=== PATIENT | male | born 1975 | race Caucasian/White ===

== ENCOUNTER 2016-07-24 11:24 | Emergency (ER) | payer OTHER ==
[~2016-07-24] VITALS: Ht 177.8 cm; Wt 85.0 kg
[2016-07-24 11:28] VITALS: TEMP 36.4; Ht 177.8 cm; Wt 85.0 kg
[2016-07-24] MEDS ORDERED: ONDANSETRON INJ 2 MG/ML 2 ML VIAL IV STA (12:02)
[2016-07-24] MEDS ORDERED: SODIUM CHLORIDE 0.9% 1000ML 1,000 ML IV STA (12:02)
[2016-07-24] MEDS ORDERED: MoRPHine SULFATE 4 MG/ML 1 ML CARP\\VIAL IV STA (12:02)
[2016-07-24] MEDS ORDERED: ONDANSETRON INJ 2 MG/ML 2 ML VIAL ONE (12:05)
[2016-07-24] MEDS ORDERED: MoRPHine SULFATE 4 MG/ML 1 ML CARP\\VIAL ONE (12:05)
--- NOTE | 2016-07-24 12:14 | DIAGNOSTIC IMAGING REPORT ---
RIGHT ANKLE MIN 3 VIEWS ROUTINE CLINICAL HISTORY: Fall Right trauma. Pain. COMPARISON: None. DISCUSSION: Mildly displaced by or potentially trimalleolar fracture right ankle. Fractures medial and lateral malleoli are noted. There is be a vertical fracture of the anterior distal aspect tibia extending to the articular services. Ankle mortise is moderately disrupted. IMPRESSION: Displaced trimalleolar fracture right ankle. Electronically signed by: Lew Aguirre M.D. 07/24/2016 12:12 PM Dictated Date/Time: 07/24/2016 12:11 PM
--- NOTE | 2016-07-24 14:57 | EMERGENCY ROOM VISIT NOTE ---
History Report prepared by Nestor: Peterson Loza Under the Supervision of: Dr. Darren Field M.D. First contact with patient: 11:55 Chief Complaint: LEG PAIN,LEG INJURY Stated Complaint: BROKEN LEG -WORK RELATED History of Present Illness The patient is a 41 year old male who presents to the Emergency Room with complaints of constant right ankle pain s/p fall occurring just prior to arrival. He states that he was on a latter at work when it slipped out from under him. He states that his leg became wedged between a few of the stairs as the latter folded. The patient did not hit his head or lose consciousness. He denies any abdominal pain, chest pain, extremity pain, back pain, or shortness of breath. He describes his pain as feeling "uncomfortable". 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 Source of History: patient Onset: Just prior to arrival Position: ankle (right) Symptom Intensity: "uncomfortable" Timing: constant Associated Symptoms: No LOC, No SOB, No abdominal pain, No back pain, No chest pain, No neck pain Review of Systems See HPI for pertinent positives & negatives. A total of 10 systems reviewed and were otherwise negative. Past Medical & Surgical Medical Problems: (1) No Known Active Medical Problems Old medical records were reviewed. Nurse's notes were reviewed and I agree with. Family History No pertinent family history stated. Social History Smoking Status: Never Smoker Occupation Status: employed Current/Historical Medications Scheduled PRN Oxycodone Immediate Rel Tab (Roxicodone Ir), 1-2 TAB PO Q4H PRN for Severe Pain Allergies Coded Allergies: No Known Allergies (Unverified , 07/24/16) Physical Exam Vital Signs Date Time Temp Pulse Resp B/P Pulse Ox O2 Delivery O2 Flow Rate FiO2 07/24/16 14:33 76 18 120/84 98 Room Air 07/24/16 12:05 65 18 117/83 95 Room Air 07/24/16 11:28 36.4 62 20 89/57 98 Room Air Physical Exam General: Well developed, well nourished, uncomfortable appearing middle aged male in no acute distress, breathing comfortably on room air. Normal speech. Glascow coma score of 15. Complaining of ankle pain and denying any other complaints. HEENT: Normal cephalic atraumatic. Pupils are equal round and reactive to light. Extraocular movements are intact. Oropharynx is pink with moist mucous membranes. No swelling of the mouth lips or tongue. No hyphema. No blood from the nose or septal hematoma. Mid face is stable. No dental trauma or malocclusion. Neck: No meningeal signs or stiffness. No midline tenderness. No Stridor. Chest: Clear to auscultation bilaterally. No wheezes or rhonchi. No increased work of breathing. No rib or sternal tenderness. No subcutaneous air. No seat belt cruz or external signs of trauma. Heart: Regular rate and rhythm without murmurs or gallops. Abdomen: Soft nontender, nondistended without rebound guarding or rigidity. No seatbelt cruz or external signs of trauma Extremities: No cyanosis or clubbing. No calf tenderness or asymmetry. Right ankle is moderately swollen bilaterally. Normal pulses on exam. No laceration. No tenderness to the knee. Spine/Back. Non tender to palpation. No CVA tenderness. Skin: Good turgor without rashes. Neurologic exam: Cranial nerves two through 12 are intact. Motor and sensation are intact and symmetrical throughout. Normal level of consciousness Medical Decision & Procedures ER Provider Diagnostic Interpretation: X-ray results as stated below per interpretation by me and the radiologist: RIGHT ANKLE MIN 3 VIEWS ROUTINE DISCUSSION: Mildly displaced by or potentially trimalleolar fracture right ankle. Fractures medial and lateral malleoli are noted. There is be a vertical fracture of the anterior distal aspect tibia extending to the articular services. Ankle mortise is moderately disrupted. IMPRESSION: Displaced trimalleolar fracture right ankle. Electronically signed by: Lew Aguirre M.D. Medications Administered Medications (Trade) Dose Ordered Sig/Ramone Route Start Time Stop Time Status Last Admin Dose Admin Sodium Chloride (Nss 1000ml) 1,000 ml @ 999 mls/hr Q1H1M STAT IV 07/24/16 12:02 07/24/16 13:02 DC 07/24/16 12:12 999 MLS/HR Morphine Sulfate (MoRPHine SULFATE INJ) 4 mg NOW STAT IV 07/24/16 12:02 07/24/16 12:04 DC 07/24/16 12:12 4 MG Ondansetron HCl (Zofran Inj) 4 mg NOW STAT IV 07/24/16 12:02 07/24/16 12:04 DC 07/24/16 12:12 4 MG ED Course 1156: Past medical records reviewed. The patient was evaluated in room A10, and a complete history and physical examination were performed. 1202: Ordered Zofran Inj 4 mg IV, Morphine Sulfate 4 mg IV, Sodium Chloride 1000 ml @ 999 mls/hr IV. Medical Decision Differentials include, but are not limited to; ankle fracture, ankle dislocation , and traumatic injuries. This patient comes in as described above. He comes in after having an injury to his right ankle. It is closed. He has a lot of swelling. Anatomically, it looks grossly aligned. He has no proximal tib-fib pain. He has no back pains or any no other injuries. IV access established and IV morphine and IV Zofran after this he was comfortable. Ice was applied. X-rays were obtained he does have a trimalleolar fracture with mild displacement only. I did talk to Dr. Fuentes who recommends a posterior splint and stirrups and pain management .he also asked that we get a CAT scan to help him with operative planning. This was obtained He said the patient should have swelling go down and follow-up with them and they can operate on him after the swelling goes down. We have made an appointment with him to be seen tomorrow at 9:15 at [facility]. Consults Time Called: 1232 Consulting Physician: Dr. Saucedo -Orthopedics Returned Call: 1440 I discussed the patient's case with Dr. Saucedo. Additional Consults: Time Called: 1442 Consulted Physician: Dr. Kerr -Orthopedics Returned Call: 1440 Additional Comments: I discussed the patient's case with Dr. Kerr. He recommends that the patient' s swelling be reduced and order a CT. He recommends that the patient is put in a splint and crutches. Impression Primary Impression: Trimalleolar fracture Scribe Attestation The scribe's documentation has been prepared under my direction and personally reviewed by me in its entirety. I confirm that the note above accurately reflects all work, treatment, procedures, and medical decision making performed by me. Departure Information Dispostion Home / Self-Care Prescriptions Oxycodone Immediate Rel Tab (ROXICODONE IR) 5 Mg Tab 1-2 TAB PO Q4H Y for Severe Pain, #30 TAB Prov: Darren Field M.D. 07/24/16 Referrals No Doctor, Assigned (PCP) Forms HOME CARE DOCUMENTATION FORM, IMPORTANT VISIT INFORMATION Patient Instructions My [facility] Additional Instructions Rest Ice intermittantly. Elevate Use Crutches. Do not bear weight Be careful getting up and down Use OxyIR 5 mg one or 2 pills every 4-6 hours as needed OxyIR may make you drowsy and do not take before drinking, driving, working Return if: Worsening of symptoms, numbness or weakness, increasing pain, pain or discoloration of her toes, any new problems concerns Follow up with or orthopedics in next 1-2 days for recheck
[2016-07-24] MEDS ORDERED: OXYC1TAB3 PO (15:18)
--- NOTE | 2016-07-24 16:27 | DIAGNOSTIC IMAGING REPORT ---
CT RIGHT ANKLE NO CONTRAST CT DOSE: 179.13 mGy.cm CLINICAL HISTORY: Trimalleolar fracture subluxation. TECHNIQUE: Helical images were acquired in the transverse plane. Sagittal and coronal reformatted images were acquired COMPARISON STUDY: Conventional radiographic study dated 07/24/2016 FINDINGS: There is a transverse fracture of the distal fibula, 36 mm proximal to the fibular tip. There is 5 mm of maximal distraction. There is a comminuted intra-articular fracture of the distal tibia. The major fracture fragments are distracted x 22 mm in AP dimension, and 14 mm transversely. The fracture contains a vertical medial malleolar component. There is also a fracture involving the lateral process of the distal tibia. There is medial translation of the talus with respect to the tibia. There is anterior displacement of the talus with respect to the tibia. There is a small amount of air present within the soft tissues. There is a small chip fracture involving the lateral aspect of the talus. IMPRESSION: Comminuted intra-articular and displayed fracture of the distal tibia with patellar subluxation. Associated distal fibular fracture. Also evident is a small chip fracture involving the lateral aspect of the talus. Electronically signed by: Bakari Bhat M.D. 07/24/2016 4:26 PM Dictated Date/Time: 07/24/2016 4:19 PM
[2016-07-24 16:35] VITALS: BP 129/81; PULSE 93; O2SAT 96
[2016-07-25] MEDS ORDERED: BIOFTAB30 PO (14:14)
[2016-07-25] MEDS ORDERED: MULT-506 PO (14:14)
[2016-07-25] MEDS ORDERED: GARL1CAP6 (14:14)
[2016-07-25] MEDS ORDERED: ZNTT/150 PO (14:33)
[2016-08-06] MEDS ORDERED: OXYC1TAB3 PO (08:34)
[2016-08-06] MEDS ORDERED: ZNTT/150 PO (08:59)
== END 2016-07-24 16:36 | disposition home or self-care (01) ==
LOC: C.EDB 11:26 → C.EDA 16:36
DX: S82.851A Displaced trimalleolar fracture of right lower leg, initial encounter for closed fracture (principal); W11.XXXA Fall on and from ladder, initial encounter; Y99.0 Civilian activity done for income or pay

== ENCOUNTER 2016-07-26 11:19 | Day surgery (SDC) | payer BC, OTHER ==
--- NOTE | 2016-07-25 12:54 | HISTORY & PHYSICAL EXAMINATION ---
DATE OF ADMISSION: 07/26/2016 SUBJECTIVE CHIEF COMPLAINT: Right ankle pain. 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 He was placed into a splint and then referred to orthopedics for surgical evaluation. PAST MEDICAL HISTORY: Acid reflux. PAST SURGICAL HISTORY: None. FAMILY HISTORY: Noncontributory. SOCIAL HISTORY: The patient denies alcohol and tobacco use. ALLERGIES: No known drug allergies. CURRENT MEDICATIONS: Multivitamin daily, Osteo Bi-Flex daily, oxycodone and ibuprofen as needed for pain since his ankle injury. OBJECTIVE PHYSICAL EXAMINATION: GENERAL: The patient is alert and oriented x3. He is in no acute distress. He is a well-dressed, well-nourished 41-year-old male whose affect is appropriate. CARDIOVASCULAR: Heart has a regular rhythm and rate without murmurs. LUNGS: Clear to auscultation bilateral. Dorsalis pedis, posterior tib pulse +2/4. Cap refill is less than 2 seconds. LYMPHATIC: No evidence of any swollen lymph nodes. MUSCULOSKELETAL: The patient is nonweightbearing on the right lower extremity. Upon inspection of the right lower extremity after removal of the splint, the patient is noted to have moderate swelling of the right ankle; however, his skin is soft. The skin is not tense. He has diffuse ankle pain with palpation. No range of motion or strength testing were performed. SKIN: There are no scars, rashes or ulcers noted. NEUROLOGIC: Sensation normal and intact distally. X-RAY EXAM: CT scan of the right ankle demonstrates a comminuted intra-articular pilon fracture of the distal tibia and also a displaced lateral malleolus fracture. ASSESSMENT AND DIAGNOSES: 1. Right ankle tibial pilon fracture. 2. Lateral malleolus fracture. PLAN: Above assessment was discussed with the patient and his . At this time, it was recommended the patient to undergo an ORIF of the right lateral malleolus fracture and application of external fixator to the right ankle. All potential risks, benefits, complications, alternatives and rehab have been discussed with the patient. At this time, he wishes to proceed with the surgery as indicated. Now, he is scheduled for the surgery on 07/26/2016. BETY
[2016-07-25 14:18] VITALS: BMI 27.0
[~2016-07-26] VITALS: Ht 177.8 cm; Wt 86.4 kg
[~2016-07-26 11:19] MED LIST: ATROPINE SULFATE 0.1 MG/ML 5ML SYR IV PRN; BIOFTAB30 PO; CEFAZOLIN 2000 MG/60 ML D5W IV SCH; EpHEDrine SULFATE INJ 50 MG/ML AMP IV PRN; FENTANYL CITRATE INJ 50 MCG/1 ML 2 ML VIAL IV PRN; GARL1CAP6; HYDROmorphone INJ 1 MG/ML SYR IV PRN; LACTATED RINGER'S 1000ML 1,000 ML IV SCH; MULT-506 PO; ONDANSETRON INJ 2 MG/ML 2 ML VIAL IV PRN; OXYC1TAB3 PO; ROPIVACAINE 0.5% 5 MG/ML 30 ML VIAL ONE; ZNTT/150 PO
[2016-07-26 11:45] VITALS: BP 137/88; PULSE 92; TEMP 37.1; O2SAT 95; Ht 177.8 cm; Wt 86.4 kg
[2016-07-26 11:48] LABS: BASO % 0.3 %; BASO ABS # 0.02 K/uL (0-0.2); EOS % 0.5 %; HEMATOCRIT 41.5 % (42-52); IG% 0.3 %; LYMPH % 14.4 %; LYMPH ABS # 1.08 K/uL (1.2-3.4); MEAN CELL VOLUME 90.4 fL (80-100); MEAN CORPUSCULAR HEMOGLOBIN 31.4 pg (25-34); MEAN PLATELET VOLUME 10.3 fL (7.4-10.4); MONO % 11.9 %; NEUT % 72.6 %; PLATELET COUNT 166 K/uL (130-400); RED BLOOD COUNT 4.59 M/uL (4.7-6.1); WHITE BLOOD COUNT 7.51 K/uL (4.8-10.8)
[2016-07-26 11:53] LABS: COMPLETE YES; MEAN CORPUSCULAR HGB CONC 34.7 g/dl (32-36)
[2016-07-26] MEDS ORDERED: MIDAZOLAM HCL 1 MG/ML 2ML VIAL ONE ×2 (12:00)
[2016-07-26] MEDS ORDERED: FENTANYL CITRATE INJ 50 MCG/1 ML 2 ML VIAL ONE ×3 (12:00→16:19)
[2016-07-26] MEDS ORDERED: BACITRACIN 50000 UNIT VIAL ONE (12:18)
--- NOTE | 2016-07-26 13:30 | History & Physical Bridge Note ---
H&P Re-Evaluation Bridge Note: I have examined the patient, reviewed the History & Physical and in the interval since the performance of the History & Physical I have noted the following changes of clinical significance: No changes noted
[2016-07-26] MEDS ORDERED: PROPOFOL IV EMULSION 10 MG/ML 20 ML VIAL IV ONE (14:23)
[2016-07-26] MEDS ORDERED: DEXAMETHASONE SOD INJ 4 MG/ML VIAL ONE (14:23)
[2016-07-26] MEDS ORDERED: ONDANSETRON INJ 2 MG/ML 2 ML VIAL ONE (14:23)
[2016-07-26] MEDS ORDERED: LIDOCAINE HCL 2% 2 ML VIAL (20MG/ML) ONE (14:23)
[2016-07-26] MEDS ORDERED: MoRPHine SULFATE 2 MG/ML CARP ONE ×2 (15:31→15:51)
--- NOTE | 2016-07-26 16:10 | [facility] Post Operative Brief Note ---
Immediate Operative Summary Operative Date July 26, 2016. Pre-Operative Diagnosis 1. Right ankle tibial pilon fracture. 2. Lateral malleolus fracture. Post-Operative Diagnosis 1. Right ankle tibial pilon fracture. 2. Lateral malleolus fracture. Procedure(s) Performed 1. Right Ankle Lateral Malleolus Fracture Open Reduction Internal Fixation, 2. Closed Reduction Tibial Pilon Fracture with Application External Fixator Surgeon Dr. Isiah Edwards Instructional Developer Surgeon(s) None Estimated Blood Loss 5cc Findings See Dict Specimens None per surgeon Drains None Anesthesia GLMA w/ popliteal block Complication(s) None Disposition Recovery Room / PACU
--- NOTE | 2016-07-26 16:14 | Discharge Instructions ---
Discharge Instructions Date of Service July 26, 2016. Admission Reason for Admission: Right Ankle Tibial Pilon Fracture, Lateral Malleolus Fracture Discharge Discharge Diagnosis / Problem: Right Ankle Tibial Pilon Fracture, Lateral Malleolus Fracture Discharge Goals Goal(s): Decrease discomfort, Improve function Activity Recommendations Activity Limitations: per Instructions/Follow-up section Weightbearing Status: Right non-weightbearing . Instructions / Follow-Up Instructions / Follow-Up ACTIVITY RECOMMENDATIONS: Limitations: No weight bearing to affected limb at all times. SPECIAL CARE INSTRUCTIONS: * Some drainage onto the dressing is normal and is no cause for alarm. * Some swelling is natural especially after walking. * When resting, keep your foot elevated above the level of your heart. * Call [facility] if you notice: -Increased drainage -Fever over 101 degrees F -Severe constant pain BANDAGE: * Leave bandage/cast in place unless otherwise directed. * Keep bandage/cast dry at all times. FOLLOW UP VISIT WITH DR. JOSEPH If appointment is not already scheduled: Please call [facility] after you get home today to schedule a follow-up appointment for next week with Dr. Joseph at . Current Hospital Diet Patient's current hospital diet: Discharge Diet Recommended Diet: Regular Diet Procedures Procedures Performed: 1. Right Ankle Lateral Malleolus Fracture Open Reduction Internal Fixation, 2. Closed Reduction Tibial Pilon Fracture with Application External Fixator Pending Studies Studies pending at discharge: no Medical Emergencies . Who to Call and When: Medical Emergencies: If at any time you feel your situation is an emergency, please call 911 immediately. . Non-Emergent Contact Non-Emergency issues call your: Surgeon Call Non-Emergent contact if: temperature is above 101, your pain is worsening , wound has increased drainage . "Provider Documentation" section prepared by Isiah Joseph. . VTE Core Measure Inpt VTE Proph given/why not?: Other Anticoagulation (EC ASA 81mg PO daily)
[2016-07-26] MEDS ORDERED: HYDROmorphone INJ 1 MG/ML SYR ONE (16:19)
--- NOTE | 2016-07-26 16:21 | DIAGNOSTIC IMAGING REPORT ---
Right ankle RIGHT ANKLE 2 VIEWS CLINICAL HISTORY: RT ANKLE ORIF Right fracture TECHNIQUE: Image intensifier COMPARISON STUDY: 07/24/2016 FINDINGS: Anatomic alignment status post reduction internal fixation. External fixator has been placed. There continues to be what appears to be a loose fragment at the anterior aspect of the ankle based on lateral projection. IMPRESSION: Anatomic alignment status post open reduction internal fixation. Placement of an external fixator. An avulsed fragment from the anterior aspect distal tibia Electronically signed by: Lew Aguirre M.D. 07/26/2016 4:20 PM Dictated Date/Time: 07/26/2016 4:18 PM
--- NOTE | 2016-07-26 16:48 | Anesthesiology Progress Note ---
Anesthesia Post Op Note Date & Time July 26, 2016 at 16:48 Vital Signs Pain Intensity: 2 Vital Signs Past 12 Hours Date Time Temp Pulse Resp B/P Pulse Ox O2 Delivery O2 Flow Rate FiO2 07/26/16 16:40 90 24 137/88 92 Nasal Cannula 2 07/26/16 16:30 91 20 148/93 100 Mask 10 07/26/16 16:20 81 14 142/83 100 Mask 10 07/26/16 16:12 37.1 99 12 138/81 98 Mask 10 07/26/16 11:45 37.1 92 18 137/88 95 Room Air Notes Mental Status: alert / awake / arousable, participated in evaluation Pt Amnestic to Procedure: Yes Nausea / Vomiting: adequately controlled Pain: adequately controlled Airway Patency, RR, SpO2: stable & adequate BP & HR: stable & adequate Hydration State: stable & adequate Anesthetic Complications: no major complications apparent
--- NOTE | 2016-07-26 16:50 | DIAGNOSTIC IMAGING REPORT ---
RIGHT ANKLE 2 VIEWS CLINICAL HISTORY: POST OP Right COMPARISON: 07/24/2016 DISCUSSION: Anatomic alignment status post open reduction internal fixation. External fixator is in position. Components of potential partial bony substance loss anterior tibia based on the lateral projection are currently obscured due to overlying metallic stabilization device. There is no evidence for soft tissue swelling. IMPRESSION: Anatomic limits status post open reduction internal fixation. Moderate persistent irregularity the articular services of the distal tibia Electronically signed by: Lew Aguirre M.D. 07/26/2016 4:48 PM Dictated Date/Time: 07/26/2016 4:47 PM
--- NOTE | 2016-07-26 16:55 | DIAGNOSTIC IMAGING REPORT ---
RIGHT TIBIA/FIBULA 2 VIEWS ROUTINE CLINICAL HISTORY: Postoperative evaluation. COMPARISON: Right ankle radiographs and CT of the right ankle July 24, 2016. FINDINGS: These images demonstrate internal fixation of the distal right fibular fracture with a plate and screws. An external fixator is noted within the right tibia as well as the right hindfoot. The hardware is intact. Alignment of the distal right tibial fracture has significantly improved. Alignment of the tibiotalar joint has improved since prior exam. IMPRESSION: Findings consistent with internal fixation of a distal right fibular fracture with plate and screws as well as placement of an external fixator and closed reduction of the distal right tibial fracture. Improved alignment of the distal right tibial fracture and improved alignment of the tibiotalar joint status post reduction. Electronically signed by: Samir Thompson M.D. 07/26/2016 4:54 PM Dictated Date/Time: 07/26/2016 4:50 PM
[2016-07-26 17:00] VITALS: BP 145/84; PULSE 87; TEMP 36.8; O2SAT 97
[2016-07-26] MEDS ORDERED: OXYCODONE HCL 10 MG TABCR (OXYCONTIN) PO SCH (17:00)
[2016-07-26 17:30] VITALS: BP 145/84; PULSE 82; TEMP 36.7; O2SAT 95
[2016-07-26 18:00] VITALS: BP 123/74; PULSE 85; TEMP 36.7; O2SAT 95
--- NOTE | 2016-07-27 00:33 | OPERATIVE REPORT ---
DATE OF OPERATION: 07/26/2016 PREOPERATIVE DIAGNOSES: 1. Right closed tibial pilon fracture. 2. Right closed fibula fracture with displacement and impaction. POSTOPERATIVE DIAGNOSES: Same. PROCEDURE: 1. Open reduction internal fixation, right fibula fracture. 2. Closed reduction and application of external fixator to the tibial pilon fracture, right lower extremity. SURGEON: Dr. Edwards. TECHNICAL SERVICE REPRESENTATIVE: None. ANESTHESIA: General LMA with popliteal block. SPECIMENS: None. DRAINS: None. COMPLICATIONS: None. BLOOD LOSS: 5 mL PERTINENT HISTORY: This is a 41-year-old old gentleman, who fell from a ladder while doing some work. He had immediate pain and inability to ambulate, seen at [facility] and then seen at the [facility]. A CT scan was reviewed. The patient was then scheduled for surgery, as indicated. The patient had significant swelling, right lower extremity, which would preclude any definitive management of the tibial pilon fracture; however, within reasonable range for fixation of the fibula and application of an external fixator. The patient was then scheduled for surgery, as indicated. All potential risks, benefits, complications, alternatives, rehab, potential for incomplete relief of symptoms, need for further surgery, DVT, PE, , persistent pain, swelling, scarring, weakness, neurovascular injury, wound complications, hardware failure, nonunion, malunion or degenerative arthritis was discussed with the patient. The patient decided to proceed with the procedure, as indicated. After popliteal block was administered to the patient, the patient was then taken to the operative suite, placed supine on the operating room table. After review of the consent and identification of the proper operative site, the patient was anesthetized, LMA was placed. Tourniquet was placed on the right thigh over cast padding. Right lower extremity was then sterilely prepped and draped in usual fashion, elevated and exsanguinated with Esmarch bandage, tourniquet inflated to 350 mmHg. Next, a 15-blade scalpel was used to make an incision over the lateral malleolus. The incision was then deepened to subcutaneous tissue and meticulous hemostasis was achieved with electrocautery. Full thickness skin flaps were developed. The superficial cutaneous nerves identified, freed, retracted, and protected. The peroneal nerve was then retracted and protected. The peroneal tendons were also identified, freed, retracted and protected. Next, the periosteum overlying the fracture site was then incised in line with the skin incision, elevated both superiorly and inferiorly revealing the fracture, which was then carefully debrided and irrigated with a small dental pick and sterile normal saline with bacitracin. After this was completed, the ankle was then reduced with manual traction and valgus posterior force and then a bone reduction forceps was placed across the fibula fracture to stabilize and compress it. Next, a 1.6 mm threaded K-wire was then placed in an oblique fashion to stabilize the fibula fracture. Next, an 8-hole 1/3 tubular locking plate was then contoured and then used to stabilize and compress the fibula fracture in near anatomic position under live fluoroscopic assistance. This was then copiously irrigated with sterile normal saline after final screws were then inserted and tightened and the ankle mortise was noted to be essentially restored in the lateral aspect. The medial aspect was then improved in alignment compared to the trauma images. Next, the lateral malleolus incision was then copiously irrigated with sterile normal saline with bacitracin followed by closure of the deep soft tissues with 2-0 Vicryl. The dermis was closed using buried interrupted 3-0 Vicryl and skin was closed with 4-0 nylon. Next, a calcaneal traction pin was then localized, using C-arm fluoroscopy, and placed along the medial aspect of the calcaneal tuberosity. We made a small stab incision with a 15-blade scalpel, which was then carefully dissected with a hemostat. The calcaneal pin was then driven into the calcaneus in its mid-body perpendicular to its axis. Next, under live fluoroscopic assistance, the neck of the talus was then marked and then incised with a 15 blade scalpel in the medial aspect followed by careful dissection with a hemostat and placement of a short talus pin in the neck of the talus. Next, using C-arm fluoroscopy, the anterior tibial threaded pins were then driven into the anterior aspect of the tibia, approximately 4 cm distal to the tibial tubercle. The tibial pins was then placed using a 15-blade scalpel incision followed by careful dissection with a hemostat down to bone. After all 4 threaded traction pins were in place, a bar-to-bar clamp was placed in the calcaneus to the talus with the foot held in neutral dorsiflexion and the ankle held in reduction. Next, an A-frame carbon fiber construct external fixator was then applied, both medial and lateral aspects of the calcaneal traction pin. The ankle was held in a reduced position under traction and then all pin-to-bar and bar-to-bar clamps were fully tightened in a stabilized position. Next, radiographs obtained in AP and lateral projections, noting near anatomic reduction of the ankle joint mortise as well as the improved alignment of the tibial pilon and the lateral malleolus. Next, a sterile compressive dressing was applied to all pin sites and this was then overwrapped with Webril and Franklyn wraps. The tourniquet was released. The patient was awakened and taken to recovery in stable condition. I attest to the content of the Intraoperative Record and any orders documented therein. Any exceptions are noted below. BETY
[2016-08-06] MEDS ORDERED: OXYC1TAB3 PO (08:34)
[2016-08-06] MEDS ORDERED: ZNTT/150 PO (08:59)
== END 2016-07-26 18:10 | disposition home or self-care (01) ==
LOC: C.ACU 11:19
PROVIDERS: ATTEND Orthopaedic Surgery Sports Medicine
DX: S82.871A Displaced pilon fracture of right tibia, initial encounter for closed fracture (principal); S82.61XA Displaced fracture of lateral malleolus of right fibula, initial encounter for closed fracture; W11.XXXA Fall on and from ladder, initial encounter; K21.9 Gastro-esophageal reflux disease without esophagitis; Z79.899 Other long term (current) drug therapy

== ENCOUNTER 2016-08-10 12:33 | Day surgery (SDC) | payer BC ==
[2016-08-06 08:36] VITALS: BMI 27.0
--- NOTE | 2016-08-08 11:25 | DIAGNOSTIC IMAGING REPORT ---
CHEST 2 VIEWS ROUTINE CLINICAL HISTORY: PRE-OP COMPARISON STUDY: No previous studies for comparison. FINDINGS: The bones soft tissues and hemidiaphragms are normal. The cardiomediastinal silhouette is normal. The lungs are clear. The pulmonary vasculature is normal. IMPRESSION: Negative chest. Electronically signed by: Lew Aguirre M.D. 08/08/2016 11:24 AM Dictated Date/Time: 08/08/2016 11:24 AM
[2016-08-08 12:18] LABS: BASO % 0.6 %; BASO ABS # 0.04 K/uL (0-0.2); COMPLETE YES; EOS % 2.6 %; HEMATOCRIT 44.3 % (42-52); IG% 0.3 %; LYMPH ABS # 2.03 K/uL (1.2-3.4); MEAN CELL VOLUME 89.7 fL (80-100); MEAN CORPUSCULAR HEMOGLOBIN 30.8 pg (25-34); MEAN CORPUSCULAR HGB CONC 34.3 g/dl (32-36); MEAN PLATELET VOLUME 9.6 fL (7.4-10.4); MONO % 6.3 %; NEUT % 61.2 %; PLATELET COUNT 404 K/uL (130-400); RED BLOOD COUNT 4.94 M/uL (4.7-6.1)
[2016-08-08 12:27] LABS: PARTIAL THROMBOPLASTIN RATIO 1.1; PROTHROMBIN TIME (PATIENT) 10.9 SECONDS (9.0-12.0)
[2016-08-08 12:38] LABS: CALCIUM 9.5 mg/dl (8.5-10.1)
[2016-08-08 12:39] LABS: BUN/CREATININE RATIO 22.3 (10-20); CREATININE 0.92 mg/dl (0.60-1.40); POTASSIUM 4.1 mmol/L (3.5-5.1)
[2016-08-08 15:54] LABS: URINE APPEARANCE CLEAR (CLEAR); URINE BILIRUBIN NEG (NEG); URINE COLOR YELLOW; URINE NITRITE NEG (NEG); URINE SPECIFIC GRAVITY 1.017 (1.000-1.030); UROBILINOGEN NEG (NEG)
[2016-08-08 16:02] LABS: MANUAL MICROSCOPIC REQUIRED? NO; REVIEW REQ? NO
--- NOTE | 2016-08-09 14:24 | HISTORY & PHYSICAL EXAMINATION ---
DATE OF ADMISSION: 08/10/2016 CHIEF COMPLAINT: Right ankle pain. HISTORY OF PRESENT ILLNESS: This is a patient who sustained a fall from a height and sustained a distal tibia and distal fibula fractures approximately 2 weeks ago. An external fixator was placed on the right lower extremity and also an ORIF of the lateral malleolus was performed. He is now being set up for removal of the external fixator and ORIF of the distal tibia fracture. PAST MEDICAL HISTORY: Acid reflux. SOCIAL HISTORY: The patient denies tobacco use, has approximately 2-3 alcoholic drinks per week. PAST SURGICAL HISTORY: Right ankle surgery. ALLERGIES: No known drug allergies. CURRENT MEDICATIONS: Multivitamin daily, Osteo Bi-Flex p.o. daily, Percocet 5/325 mg 1-2 p.o. q. 4 hours as needed for pain. FAMILY HISTORY: Noncontributory. OBJECTIVE PHYSICAL EXAMINATION: GENERAL: The patient is alert and oriented x3. He is in no acute distress. He is a well-dressed, well-nourished 41-year-old male whose affect is appropriate. CARDIOVASCULAR EXAMINATION: Heart has a regular rhythm and rate without murmurs. LUNGS: Clear to auscultation bilaterally. Dorsalis pedis, posterior tib pulse +2/4. Cap refill is less than 2 seconds. LYMPHATIC EXAMINATION: No evidence of any swollen lymph nodes. MUSCULOSKELETAL EXAMINATION: The patient is nonweightbearing on the right lower extremity. Upon inspection of her lower extremity, the external fixator is in good position. The pin sites are clean. There are no signs of infection. There is no erythema, no streaking. There is no drainage noted. He has a well aligned and healing lateral ankle incision. No range of motion or strength testing were performed. NEUROLOGIC EXAMINATION: Sensation normal and intact distally. ASSESSMENT AND DIAGNOSES: 1. Right distal tibia pilon fracture. 2. Retained external fixator. PLAN: Above assessment was discussed with the patient. At this time it was recommended the patient undergo removal of external fixator from the right lower extremity and ORIF of a right distal tibia pilon fracture. All potential risks, benefits, complications, alternatives and rehab have been discussed with the patient. At this time, he wishes to proceed with the surgery as indicated. He will be scheduled for the surgery on 08/10/2016.
[~2016-08-10] VITALS: Ht 177.8 cm; Wt 86.4 kg
[~2016-08-10 12:33] MED LIST changes: -ATROPINE SULFATE 0.1 MG/ML 5ML SYR IV PRN; -BIOFTAB30 PO; +BUPIVACAINE 0.5 % 5 MG/1 ML PF 10ML VIAL ONE; -EpHEDrine SULFATE INJ 50 MG/ML AMP IV PRN; -FENTANYL CITRATE INJ 50 MCG/1 ML 2 ML VIAL IV PRN; -GARL1CAP6; -HYDROmorphone INJ 1 MG/ML SYR IV PRN; -ONDANSETRON INJ 2 MG/ML 2 ML VIAL IV PRN; -ROPIVACAINE 0.5% 5 MG/ML 30 ML VIAL ONE
[2016-08-10 12:52] VITALS: BP 109/76; PULSE 77; TEMP 36.9; O2SAT 97; Ht 177.8 cm; Wt 86.4 kg
[2016-08-10] MEDS ORDERED: MIDAZOLAM HCL 1 MG/ML 2ML VIAL ONE ×2 (14:49→14:55)
[2016-08-10] MEDS ORDERED: FENTANYL CITRATE INJ 50 MCG/1 ML 2 ML VIAL ONE ×3 (14:49→19:02)
[2016-08-10] MEDS ORDERED: ROPIVACAINE 0.5% 5 MG/ML 30 ML VIAL ONE (15:13)
[2016-08-10] MEDS ORDERED: LABETALOL HCL IV 5 MG/ML 20ML IV PRN (15:15)
[2016-08-10] MEDS ORDERED: ATROPINE SULFATE 0.1 MG/ML 5ML SYR IV PRN (15:15)
[2016-08-10] MEDS ORDERED: KETOROLAC TROMETHAMINE 30 MG/ML VIAL IV. PRN (15:15)
[2016-08-10] MEDS ORDERED: ONDANSETRON INJ 2 MG/ML 2 ML VIAL IV PRN (15:15)
[2016-08-10] MEDS ORDERED: BACITRACIN 50000 UNIT VIAL ONE (16:53)
[2016-08-10] MEDS ORDERED: PROPOFOL IV EMULSION 10 MG/ML 20 ML VIAL IV ONE (18:13)
[2016-08-10] MEDS ORDERED: DEXAMETHASONE SOD INJ 4 MG/ML VIAL ONE (18:14)
[2016-08-10] MEDS ORDERED: ONDANSETRON INJ 2 MG/ML 2 ML VIAL ONE (18:14)
[2016-08-10] MEDS ORDERED: LIDOCAINE HCL 2% 2 ML VIAL (20MG/ML) ONE (18:14)
--- NOTE | 2016-08-10 18:49 | DIAGNOSTIC IMAGING REPORT ---
RIGHT ANKLE 2 VIEWS CLINICAL HISTORY: Removal of external fixator with internal fixation. COMPARISON STUDY: Right ankle fluoroscopic images July 26, 2016. Fluoroscopy time: 58 seconds. FINDINGS: 2 fluoroscopic images demonstrate distal right tibial and fibular reconstructions plates with screws. Hardware is intact. Fracture alignment appears near anatomic. There are no unexpected radiopaque foreign bodies. External fixator been removed. IMPRESSION: Expected findings following distal right tibial and fibular internal fixation. Electronically signed by: Samir Thompson M.D. 08/10/2016 6:48 PM Dictated Date/Time: 08/10/2016 6:47 PM
[2016-08-10] MEDS ORDERED: OXYC-57 PO (19:08)
[2016-08-10] MEDS ORDERED: OXYSR10 PO (19:08)
--- NOTE | 2016-08-10 19:10 | [facility] Post Operative Brief Note ---
Immediate Operative Summary Operative Date August 10, 2016. Pre-Operative Diagnosis Right distal tibia pilon fracture, Retained external fixator. Post-Operative Diagnosis Right distal tibia pilon fracture; Retained external fixator; OCD medial talus Procedure(s) Performed Open reduction internal fixation of right Tibial Pilon Fracture; Removal of external fixator; Chondroplasty Medial Talus Surgeon Dr. Edwards Sock Drier Surgeon(s) Josafat Goncalves PA-C, Kem Novoa PA-C Estimated Blood Loss 10ML Findings See Dict Specimens A: explanted hardware from external fixation of right tibia Drains None Anesthesia GLMA w/ popliteal block Complication(s) None Disposition Recovery Room / PACU
--- NOTE | 2016-08-10 19:11 | Discharge Instructions ---
Discharge Instructions Date of Service August 10, 2016. Admission Reason for Admission: Right Tibia Pilon Fracture Discharge Discharge Diagnosis / Problem: right tibial pilon fracture Discharge Goals Goal(s): Decrease discomfort, Improve function Activity Recommendations Activity Limitations: per Instructions/Follow-up section Weightbearing Status: Right non-weightbearing . Instructions / Follow-Up Instructions / Follow-Up ACTIVITY RECOMMENDATIONS: Limitations: No weight bearing to affected limb at all times. SPECIAL CARE INSTRUCTIONS: * Use aspirin 81 mg by mouth every 12 hours for 30 days from surgery for prophylaxis of deep vein thrombosis. * Some drainage onto the dressing is normal and is no cause for alarm. * Some swelling is natural especially after walking. * When resting, keep your foot elevated above the level of your heart. * Call [facility] if you notice: -Increased drainage -Fever over 101 degrees F -Severe constant pain BANDAGE: * Leave bandage/cast in place unless otherwise directed. * Keep bandage/cast dry at all times. FOLLOW UP VISIT WITH DR. JOSEPH If appointment is not already scheduled: Please call [facility] after you get home today to schedule a follow-up appointment for [address] Joseph at . Current Hospital Diet Patient's current hospital diet: Discharge Diet Recommended Diet: Regular Diet Procedures Procedures Performed: Removal of external fixator, Open reduction internal fixation of right tibial fracture Pending Studies Studies pending at discharge: no Medical Emergencies . Who to Call and When: Medical Emergencies: If at any time you feel your situation is an emergency, please call 911 immediately. . Non-Emergent Contact Non-Emergency issues call your: Surgeon Call Non-Emergent contact if: temperature is above 101, your pain is not controlled, your pain is worsening . "Provider Documentation" section prepared by Kem Novoa. . VTE Core Measure Inpt VTE Proph given/why not?: SCD's
[2016-08-10] MEDS ORDERED: ASPEC81 PO (19:12)
[2016-08-10] MEDS ORDERED: OXYCODONE/ACETAMINOPHEN 5-325 TAB PO PRN (19:15)
[2016-08-10] MEDS: HYDROmorphone INJ 2 MG/ML SYR/VIAL IV PRN ×8 (19:15→19:50)
--- NOTE | 2016-08-10 20:00 | DIAGNOSTIC IMAGING REPORT ---
RIGHT ANKLE MIN 3 VIEWS ROUTINE CLINICAL HISTORY: Postoperative evaluation. COMPARISON: Right ankle radiograph July 24, 2016. FINDINGS: Interval placement of a distal right tibial plate with screws is noted. This fixates the distal right tibial fracture. Fracture alignment has improved and is now near anatomic. Tibiotalar joint alignment has improved. A distal right fibular internal fixation is noted. Fine detail is diminished by overlying cast. The external fixator has been removed. IMPRESSION: Expected findings following distal right tibial and fibular internal fixation. Electronically signed by: Samir Thompson M.D. 08/10/2016 7:59 PM Dictated Date/Time: 08/10/2016 7:57 PM
[2016-08-10 20:10] VITALS: BP 132/86; PULSE 89; TEMP 36.1; O2SAT 96
--- NOTE | 2016-08-10 20:13 | Anesthesiology Progress Note ---
Anesthesia Post Op Note Date & Time August 10, 2016 at 20:13 Vital Signs Pain Intensity: 4 Vital Signs Past 12 Hours Date Time Temp Pulse Resp B/P Pulse Ox O2 Delivery O2 Flow Rate FiO2 08/10/16 20:05 36.1 89 12 132/85 96 Room Air 08/10/16 19:56 133/83 08/10/16 19:55 93 13 98 08/10/16 19:55 93 13 08/10/16 19:51 127/79 08/10/16 19:50 90 10 08/10/16 19:50 92 10 97 08/10/16 19:46 132/87 08/10/16 19:45 95 19 08/10/16 19:45 97 19 98 08/10/16 19:41 133/86 08/10/16 19:40 97 19 08/10/16 19:40 99 19 95 08/10/16 19:36 133/92 08/10/16 19:35 93 19 08/10/16 19:35 91 19 99 08/10/16 19:31 148/93 08/10/16 19:30 90 19 08/10/16 19:30 87 19 100 08/10/16 19:26 142/99 08/10/16 19:25 96 20 100 08/10/16 19:25 97 20 08/10/16 19:21 142/90 08/10/16 19:20 93 18 08/10/16 19:20 95 18 100 08/10/16 19:16 160/83 08/10/16 19:15 96 18 100 08/10/16 19:15 97 18 08/10/16 19:11 155/96 08/10/16 19:10 97 12 97 08/10/16 19:10 98 12 08/10/16 19:06 160/85 08/10/16 19:05 98 08/10/16 19:05 36.1 97 16 160/95 97 Mask 10 08/10/16 19:05 98 95 08/10/16 12:52 36.9 77 18 109/76 97 Room Air Notes Mental Status: alert / awake / arousable, participated in evaluation Pt Amnestic to Procedure: Yes Nausea / Vomiting: adequately controlled Pain: adequately controlled Airway Patency, RR, SpO2: stable & adequate BP & HR: stable & adequate Hydration State: stable & adequate Anesthetic Complications: no major complications apparent
[2016-08-10 20:41] VITALS: BP 144/89; TEMP 36.1; O2SAT 93
[2016-08-10 21:01] VITALS: BP 128/89; PULSE 89; PULSE 90; TEMP 36.9; O2SAT 95
--- NOTE | 2016-08-11 00:42 | OPERATIVE REPORT ---
DATE OF OPERATION: 08/10/2016 PREOPERATIVE DIAGNOSES: 1. Right displaced, impacted distal tibial pilon fracture. 2. Retained external fixator. POSTOPERATIVE DIAGNOSES: Same as above in addition to traumatic osteochondral defect, superomedial talus. PROCEDURE: 1. Open reduction internal fixation, right tibial pilon fracture. 2. Removal of external fixator. 3. Debridement and chondroplasty, superomedial talus. SURGEON: Dr. Edwards. COMMUNITY ASSISTANT: Kem Novoa PA-C and Josafat Goncalves PA-C. ANESTHESIA: General LMA with popliteal block. SPECIMENS: External fixator. DRAINS: None. COMPLICATIONS: None. BLOOD LOSS: 10 mL. PERTINENT HISTORY: This is a 41-year-old gentleman who fell from a ladder landing on his right lower extremity. He had a displaced tibial pilon fracture with a fibular fracture. He had undergone open reduction internal fixation of the fibula with application of an external fixator, approximately 2 weeks prior for a staged procedure for management of soft tissues and eventual ORIF of the right distal tibial pilon fracture. Due to the nature and severity of the injury, the patient had to be done in a staged fashion. All potential risks, benefits, complications, alternatives, rehab, potential for incomplete relief of symptoms, need for further surgery, DVT, PE, , persistent pain, swelling, scarring, weakness, neurovascular injury, wound complications, nonunion, malunion, hardware failure were discussed with the patient. The patient decided to proceed with the procedure as indicated. DESCRIPTION OF PROCEDURE: After the patient had a popliteal block in the preop holding area, he was taken to the operative suite and placed supine on the operating room table. I reviewed consent and identification of proper operative site, patient anesthetized, LMA was placed. Next, tourniquet was placed high on the right thigh over cast padding. Right lower extremity was then initially prepped with Betadine and the external fixator frame was removed and then the pins were then prepped with Betadine. The tibial pins were then removed and irrigated with sterile normal saline followed by sterile prep and drape of the right lower extremity with the retained calcaneal and talar pins in place. Next, the talus pin was then removed using a power water truck driver followed by use of a large coal cutter to cut the nonthreaded portion of the lateral aspect of the calcaneal traction pin. Next, the threaded pin was then removed from the medial aspect using a power water truck driver. Next, these small external fixator was then copiously irrigated with sterile normal saline. These were also curetted with a small curette. Next, the 15 blade scalpel was used to make an anterior incision over the right distal tibia and ankle joint and the incision was then deepened through subcutaneous tissue and meticulous hemostasis was achieved with electrocautery. Full thickness skin flaps were developed, the retinaculum was then identified and incised along the skin incision followed by identification of the superficial peroneal nerve which was then marked with a marking pen, retracted, and protected. Next, dorsal retinaculum was then incised with a 15 blade scalpel centered over the extensor hallucis longus. The extensor hallucis longus and the neurovascular bundle were retracted laterally. The tibialis anterior was retracted medially. This was then followed by identification of the anterior joint capsule was then incised with 15 blade scalpel and elevated both medially and laterally revealing the impacted distal tibial pilon fracture. Clot and venous blood was encountered. This was irrigated with sterile normal saline until clear. Next, the fragments were then disimpacted from the distal tibia with a Aponte and a pollock elevator, elevated to appropriate length of the tibia and then the anteromedial and anterolateral fragments were then carefully pinned in place with 1.6 mm guide pins placed in a live fluoroscopic assistance. Once the near anatomic reduction and provisional pin fixation was performed, a Synthes locking anterolateral fixation plate was then temporarily pinned to the anterior and anterolateral aspect of the tibia under live fluoroscopic assistance. Once this was stable and placed, the plate was used to help reduce the fracture with a single nonlocking screw was used to compress the plate to the fracture followed by fixation of the distal aspect of the tibia and placed under live fluoroscopic assistance with multiple locking screws. Next, multiple locking screws were placed laterally and anterolaterally resulting in near anatomic reduction and fixation of the tibia. Of note, the superior medial aspect of the talus was damaged from the traumatic injury resulting traumatic osteochondral defect superior medial aspect of the talus. At this point, a rongeur and forceps used to debride the damaged portion of the articular cartilage. There was no other alternative of fixation that this is a skiving oblique delamination injury in the superior maps superior medial aspect of the talus. No fixation could be achieved. The damaged portion of the articular cartilage was then removed. Next, the tibiotalar joint was then copiously irrigated with sterile normal saline as well as the incision over the anterior aspect of the talus with copious amounts of sterile normal saline with bacitracin. Next, final x-rays obtained in AP and lateral projections noting near anatomic reduction and fixation of the right distal tibial pilon fracture. Next, the anterior joint capsule was then closed using #1 Vicryl suture. Next, the anterior retinaculum was then closed using 2-0 Vicryl suture. Next, the dermis was then closed using buried interrupted 3-0 Vicryl after copious irrigation with sterile normal saline. Next, the skin was then closed using 4-0 nylon sutures. Next, sterile compressive dressing was applied as well as a bulky Chandra Bryan plaster splint placed in neutral dorsiflexion and overwrapped with an Franklyn wrap. The tourniquet was released. The patient was awakened and taken to recovery in stable condition. I attest to the content of the Intraoperative Record and any orders documented therein. Any exceptio ns are noted below.
== END 2016-08-10 21:28 | disposition home or self-care (01) ==
LOC: C.ACU 12:33
PROVIDERS: ATTEND Orthopaedic Surgery Sports Medicine
DX: S82.871A Displaced pilon fracture of right tibia, initial encounter for closed fracture (principal); W19.XXXA Unspecified fall, initial encounter